=== PATIENT | male | born 1950 | race Caucasian/White ===

== ENCOUNTER 2017-02-08 06:43 | Day surgery (SDC) | payer MEDICARE, OTHER ==
[2017-01-28 10:23] VITALS: BMI 29.0
[~2017-02-08 06:43] MED LIST: LACTATED RINGERS 1,000 ML IV SCH
[2017-02-08 07:22] LABS: Glucose,Whole Blood 97 mg/dL (75-99)
[2017-02-08 07:24] VITALS: RESP 18; TEMP 97.3
[2017-02-08] MEDS ORDERED: LACTATED RINGERS 1,000 ML IV ONE (07:24)
[2017-02-08] MEDS ORDERED: PROPOFOL 10 MG/ML 20 ML VIAL IV ONE (07:47)
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
--- NOTE | 2017-02-08 08:17 | P.OP ---
Date of Procedure: 02/08/17 Preoperative Diagnosis: Screening colonoscopy Postoperative Diagnosis: Diverticulosis Procedure(s) Performed: Colonoscopy Anesthesia: MAC Surgeon: Colby Hilton Pathology: none sent Condition: stable Disposition: PACU Description of Procedure: Patient's placed on the endoscopy table in the lateral position. He received IV sedation. Digital rectal exam was performed which revealed no other medical history the prostate was symmetric without nodules. The flexible colonoscope was then placed patient anus passed throughout the entire colon. The ileocecal valve was visualized. The cecum, ascending transverse colon appeared normal. In the descending and sigmoid colon there is extensive diverticular changes. Scope was then brought back the rectum appeared normal. Scope was withdrawn for patient.
[2017-02-08 08:34] VITALS: BP 142/94; PULSE 82
== END 2017-02-08 08:53 | disposition home or self-care (01) ==
LOC: ORWHC2ENDO 06:43
PROVIDERS: ATTEND Surgery
DX: Z12.11 Encounter for screening for malignant neoplasm of colon (principal); K57.30 Diverticulosis of large intestine without perforation or abscess without bleeding; E11.9 Type 2 diabetes mellitus without complications; K21.9 Gastro-esophageal reflux disease without esophagitis; E78.5 Hyperlipidemia, unspecified; I10 Essential (primary) hypertension; G47.33 Obstructive sleep apnea (adult) (pediatric); Z99.89 Dependence on other enabling machines and devices; Z87.891 Personal history of nicotine dependence; Z79.899 Other long term (current) drug therapy; Z79.4 Long term (current) use of insulin
CPT/HCPCS: J2704; G0121; 45378

== ENCOUNTER → 2018-11-28 | Outpatient (CLI) | payer MEDICARE ==
--- NOTE | 2018-11-28 09:36 | US ---
EXAMINATION TYPE: US renal artery duplex complet DATE OF EXAM: 11/28/2018 COMPARISON: NONE CLINICAL HISTORY: Q27.1 Renal Arterial Stenosis. MEASUREMENTS: RENAL SIZE: Rt Kidney: 9.2 x 4.6 x 4.4cm Lt Kidney: 9.6 x 4.6 x 4.6cm RESISTANCE INDEX Right: 0.7 Left: 0.6 RA/AO RATIO (< 3.5 ) Right: 1.4 Left: 1.2 RA VELOCITY ( < 180 cm/s) Right: 116cm/s Left: 99.6cm/s Extensive overlying bowel gas and large abdomen making exam technically difficult. Right kidney shows very lobular contour, 2 echogenic foci noted upper and lower pole largest with the measuring 0.4 x 0.4 x 0.4cm No evidence of renal artery stenosis. IMPRESSION: 1. No sonographic evidence of renal arterial stenosis. 2. Lobulated contour of the right kidney could relate to prior trauma, be congenital in nature, or se quela of medical renal disease. 3. Nonobstructing right renal calculi measuring up to 0.4 cm.
== END | disposition home or self-care (01) ==
LOC: RADUSWWP 07:21
PROVIDERS: ATTEND Family Medicine
DX: N20.0 Calculus of kidney (principal); Z88.5 Allergy status to narcotic agent
CPT/HCPCS: 93975

== ENCOUNTER 2019-01-31 07:13 | Day surgery (SDC) | payer MEDICARE ==
[~2019-01-31 07:13] MED LIST changes: +DEXAMETHASONE SOD PHOSPHATE 10 MG/ML 1 ML VIAL IV ONE; +HEPARIN SODIUM,PORCINE 5,000 UNIT/ML 1 ML VIAL SQ ONE; +LIDOCAINE 1% 20 ML VIAL (10MG/ML) FOR IV START INTRADERMA PRN; +ONDANSETRON 4 MG/2 ML VIAL IVP PRN; +SCOPOLAMINE 1.5MG/72HR PATCH TRANSDERM ONE
[2019-01-31] MEDS: MIDAZOLAM PF (FBP) 2 MG/2 ML VIAL IVP ONE ×2 (08:08→10:46)
[2019-01-31] MEDS: fentaNYL (PF) 50 MCG/ML 2 ML AMP IVP ONE ×2 (08:08→10:46)
[2019-01-31 08:10] LABS: Glucose,Whole Blood 107 mg/dL (75-99)
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
[2019-01-31] MEDS ORDERED: GLYCOPYRROLATE 0.2 MG/ML 2 ML VIAL ONE (10:45)
[2019-01-31] MEDS ORDERED: KETOROLAC 30 MG/ML 1 ML VIAL ONE (10:45)
[2019-01-31] MEDS ORDERED: NEOSTIGMINE 1 MG/ML 10 ML VIAL ONE (10:45)
[2019-01-31] MEDS ORDERED: ePHEDrine SULFATE/0.9% NACL/PF 50 MG/5 ML SYRINGE IV ONE (10:45)
[2019-01-31] MEDS ORDERED: SUCCINYLCHOLINE CHLORIDE 100 MG/5 ML SYR IV ONE (10:45)
[2019-01-31] MEDS ORDERED: fentaNYL (PF) 50 MCG/ML 2 ML AMP ONE (10:45)
[2019-01-31] MEDS ORDERED: ROCURONIUM BROMIDE 10 MG/ML 10 ML VIAL IV ONE ×2 (10:45)
[2019-01-31] MEDS ORDERED: ROPIVACAINE 5 MG/ML 30 ML VIAL ONE (10:45)
[2019-01-31] MEDS ORDERED: PROPOFOL 10 MG/ML 20 ML VIAL IV ONE (10:45)
[2019-01-31] MEDS ORDERED: MIDAZOLAM 2 MG/2 ML VIAL ONE (10:45)
[2019-01-31] MEDS ORDERED: LACTATED RINGERS 1,000 ML IV ONE (11:14)
[2019-01-31] MEDS ORDERED: BUPIVACAINE (PF) 0.5% 30 ML VIAL SQ ONE ×2 (11:20)
[2019-01-31 12:25] VITALS: TEMP 97.6
[2019-01-31] MEDS: HYDROmorphone 0.5 MG/0.5 ML SYRINGE IVP PRN ×2 (12:34→12:41)
--- NOTE | 2019-01-31 12:34 | P.OP ---
Date of Procedure: 01/31/19 Preoperative Diagnosis: Umbilical hernia Postoperative Diagnosis: Incarcerated umbilical hernia Procedure(s) Performed: Laparoscopic robotic-assisted repair of incarcerated umbilical hernia Partial omentectomy Anesthesia: JUANITA Surgeon: Colby Hilton Estimated Blood Loss (ml): 5 Pathology: other (Incarcerated omentum/hernia sac) Condition: stable Disposition: PACU Description of Procedure: The patient was placed on the operating table in the supine position. He receiv ed general anesthesia. His abdomen was prepped and draped usual fashion. Using a 5 mm optical trocar under direct visualization the peritoneal cavity was entered in the left upper quadrant. The abdomen was then insufflated. The laparoscope was placed back into the perineal cavity. Next a 8 mm robotic trocar was placed in the left lower quadrant and a 12 mm robotic trocar was placed in the left lateral position. The original 5 mm trocar was exchanged for a 8 mm robotic trocar. The patient's placed in the left side up position. And the patient was undocked the robot. The umbilical hernia was visualized. Using hook cautery the peritoneum over the umbilical hernia was excised. The incarcerated omentum and hernia sac was transected with a large cautery and sent to pathology. The fascial opening was repaired using 0V LOC suture. Next a piece of 11 cm round ventral light ST mesh was placed into the. Cavity and secured with 2 OV lock suture. The patient was undocked the robot. The needles were retrieved. The fascia of the 12 mm trocar site was closed with 0 Ethibond suture. Skin was closed interrupted 3-0 Monocryl suture. Dermabond dressings was applied. Patient top procedure well and was sent to recovery room stable condition.
--- NOTE | 2019-01-31 13:06 | P.ANPRN ---
Procedure Note - Anesthesia - Nerve Block Performed Bilateral Rectus Abdominis Single Time Out Performed: Yes Date of Procedure: 01/31/19 Procedure Start Time: 08:07 Procedure Stop Time: 08:16 Location of Patient Procedure: PreOp Indication: Acute Post-Operative Pain, Requested by Surgeon (karlene) Specifically requested for management of pain by DrKasandra: Colby Hilton Sedation Type: Sedate with meaningful contact maintained Preparation: Sterile Prep Position: Supine Catheter: None Needle Types: Pajunk Needle Gauge: 20 Ultrasound used to visualize needle placement: Yes Ultrasound used to observe medication spread: Yes Injectate: Other (see comment) (0.25% ropivacaine/0.5% lidocaine 25 mL each side) Adjunct: Epinephrine (see comment for dilution ratio) (1:200,000) Blood Aspirated: No Pain Paresthesia on Injection Noted: No Resistance on Injection: Normal Image Stored and Saved: Yes Events: Uneventful and Well Tolerated
[2019-01-31 13:39] VITALS: RESP 16
[2019-01-31 14:47] VITALS: BP 141/90; PULSE 73
== END 2019-01-31 15:49 | disposition home or self-care (01) ==
LOC: OR 07:13
PROVIDERS: ATTEND Surgery
DX: K42.0 Umbilical hernia with obstruction, without gangrene (principal); E11.9 Type 2 diabetes mellitus without complications; K21.9 Gastro-esophageal reflux disease without esophagitis; E78.5 Hyperlipidemia, unspecified; I10 Essential (primary) hypertension; M19.90 Unspecified osteoarthritis, unspecified site; G47.33 Obstructive sleep apnea (adult) (pediatric); Z99.89 Dependence on other enabling machines and devices; H93.19 Tinnitus, unspecified ear; M10.9 Gout, unspecified; N20.0 Calculus of kidney; F41.9 Anxiety disorder, unspecified; Z87.891 Personal history of nicotine dependence; Z84.89 Family history of other specified conditions; Z79.84 Long term (current) use of oral hypoglycemic drugs; Z79.899 Other long term (current) drug therapy
CPT/HCPCS: 49653; 64488; 88302; C1781; J2250 ×2; J1644; J1100; J2710; J2405; J3010; J1885; J2795; J0330; J2704; J1170

== ENCOUNTER → 2019-09-25 | Outpatient (CLI) | payer MEDICARE | END | disposition home or self-care (01) | LOC: LABWHC1 12:51 | PROVIDERS: ATTEND Surgery | DX: Z11.59 Encounter for screening for other viral diseases (principal) ==

== ENCOUNTER 2019-09-28 07:43 | Day surgery (SDC) | payer MEDICARE ==
[2019-09-27 08:40] VITALS: BMI 29.8
[~2019-09-28 07:43] MED LIST changes: -DEXAMETHASONE SOD PHOSPHATE 10 MG/ML 1 ML VIAL IV ONE; -HEPARIN SODIUM,PORCINE 5,000 UNIT/ML 1 ML VIAL SQ ONE; -LIDOCAINE 1% 20 ML VIAL (10MG/ML) FOR IV START INTRADERMA PRN; -ONDANSETRON 4 MG/2 ML VIAL IVP PRN; -SCOPOLAMINE 1.5MG/72HR PATCH TRANSDERM ONE
[2019-09-28] MEDS ORDERED: LIDOCAINE 1% (10MG/ML) FOR IV START INTRADERMA ONE (08:06)
[2019-09-28 08:09] LABS: Glucose,Whole Blood 103 mg/dL (75-99)
[2019-09-28 08:14] VITALS: TEMP 97.7
[2019-09-28] MEDS ORDERED: PROPOFOL 10 MG/ML 20 ML VIAL IV ONE (08:32)
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
--- NOTE | 2019-09-28 08:54 | P.OP ---
Date of Procedure: 09/28/19 Preoperative Diagnosis: Diarrhea Postoperative Diagnosis: Diverticulosis Interventional hemorrhoids Random rectal biopsy pathology pending Procedure(s) Performed: Colonoscopy Anesthesia: MAC Surgeon: Colby Hilton Pathology: other (Rectum) Condition: stable Disposition: PACU Description of Procedure: The patient's placed on the endoscopy table in the lateral position. He received IV sedation. Digital rectal exam performed which revealed internal/external hemorrhoids. Flexible colonoscope was then placed patient anus passed throughout the entire colon. The ileocecal valve sutures. The cecum, ascending and transverse colon appeared normal. In the descending; there is moderate diverticular changes. There is no evidence of diverticulitis. Scope was brought back and the rectum and this appeared normal. A random biopsy of the rectum was performed due to the patient's symptoms a diarrhea. The scope was withdrawn for patient.
[2019-09-28 09:14] VITALS: RESP 16
[2019-09-28 09:38] VITALS: BP 112/71; PULSE 64
== END 2019-09-28 09:52 | disposition home or self-care (01) ==
LOC: ORWHC2ENDO 07:43
PROVIDERS: ATTEND Surgery
DX: K64.8 Other hemorrhoids (principal); K64.4 Residual hemorrhoidal skin tags; R19.7 Diarrhea, unspecified; E11.9 Type 2 diabetes mellitus without complications; K21.9 Gastro-esophageal reflux disease without esophagitis; H91.90 Unspecified hearing loss, unspecified ear; E78.5 Hyperlipidemia, unspecified; I10 Essential (primary) hypertension; M19.90 Unspecified osteoarthritis, unspecified site; G47.33 Obstructive sleep apnea (adult) (pediatric); Z99.89 Dependence on other enabling machines and devices; M10.9 Gout, unspecified; H93.19 Tinnitus, unspecified ear; Z87.442 Personal history of urinary calculi; Z87.19 Personal history of other diseases of the digestive system; Z98.890 Other specified postprocedural states; F41.9 Anxiety disorder, unspecified; Z87.891 Personal history of nicotine dependence; Z82.49 Family history of ischemic heart disease and other diseases of the circulatory system; Z79.84 Long term (current) use of oral hypoglycemic drugs; Z79.899 Other long term (current) drug therapy; Z88.5 Allergy status to narcotic agent
CPT/HCPCS: 88305; 45380; J2704; 45378

== ENCOUNTER → 2021-01-03 | Outpatient (CLI) | payer MEDICARE ==
--- NOTE | 2021-01-08 04:39 | MR ---
EXAMINATION TYPE: MR shoulder RT wo con DATE OF EXAM: 01/07/2021 COMPARISON: None HISTORY: Right Shoulder Pain Multiplanar multiecho imaging of the right shoulder with no contrast. There is large shoulder joint effusion. There is also subdeltoid effusion. There is subacromial joint space narrowing. There is moderate spurring at the AC joint. There is some retraction of the suprasp inatus tendon. Subscapularis tendon is intact. Biceps tendon appears intact. Glenoid aisha appear intact. There is s ome superior mild subluxation of the humeral head. There is no evidence of a fracture. IMPRESSION: Large rotator cuff tear with retraction of the supraspinatus tendon. Moderate shoulder joint effusion and subdeltoid effusion consistent with some synovitis and bursitis. Exam limited somewhat by motion . Moderate subacromial joint space narrowing and impingement.
== END | disposition home or self-care (01) ==
LOC: RADMRIMAIN 10:13
PROVIDERS: ATTEND Orthopaedic Surgery
DX: Z53.9 Procedure and treatment not carried out, unspecified reason (principal)

== ENCOUNTER → 2021-02-04 | Outpatient (CLI) | payer MEDICARE | END | disposition home or self-care (01) | LOC: LABPAT 12:54 | PROVIDERS: ATTEND Orthopaedic Surgery | DX: Z01.812 Encounter for preprocedural laboratory examination (principal); M12.811 Other specific arthropathies, not elsewhere classified, right shoulder; Z22.322 Carrier or suspected carrier of Methicillin resistant Staphylococcus aureus | CPT/HCPCS: 87070 ==

== ENCOUNTER 2021-02-10 05:58 | Day surgery (SDC) | payer MEDICARE ==
[2021-02-06 16:11] VITALS: BMI 31.2
--- NOTE | 2021-02-09 09:14 | HP ---
HISTORY AND PHYSICAL CHIEF COMPLAINT: Right shoulder pain and weakness. HISTORY OF PRESENT ILLNESS: Patient is a 70-year-old, right-hand dominant, retired gentleman who presents with progressive right shoulder pain and weakness for the past several years. It has worsened this year after a fall in October. He has diffuse pain with activity and any lifting. He notes decreased motion and strength. He is having night symptoms. He has tried previous injections along with home exercises and medications. His pain bothers him daily. PAST MEDICAL HISTORY: Significant for type 2 diabetes and hypertension. PAST SURGICAL HISTORY: Significant for right knee arthroscopy and thumb surgery. CURRENT MEDICATIONS: Amlodipine, atenolol, atorvastatin, Celebrex, Donepezil, Famotidine, glipizide, loratadine, and losartan. ALLERGIES: He has no known drug allergies. FAMILY HISTORY: Unknown. SOCIAL HISTORY: Negative for current tobacco or alcohol use. REVIEW OF SYSTEMS: Sixteen-point review of systems is reviewed and otherwise noncontributory. PHYSICAL EXAMINATION: On examination, the patient is approximately 5 foot 5, 195 pounds of endomorphic habitus. HEENT exam is nonfocal. Neck is supple. Active range of motion of the right shoulder. forward elevation 125 degrees, external rotation with arm at side 55 degrees, internal rotation to L3. Passively I able to forward elevate him to 150 degrees. Motor strength 4- over 5 for abduction and external rotation. Impingement test, Neer test, and Speed test are positive. His distal neurovascular exam appears intact in the right upper extremity. MRI report right shoulder is reviewed, shows evidence of a large rotator cuff tear with retraction. IMPRESSION: Right rotator cuff arthropathy with chronic retracted rotator cuff tear. RECOMMENDATIONS: I talked to the patient at length regarding his condition along with treatment options. At this point, he is quite symptomatic and limited because of pain despite previous conservative measures. After thorough discussion, he opts to proceed with surgery. We will plan to proceed with right reverse total shoulder arthroplasty. Risks and benefits were discussed at length in layman's terms. MMODL / IJN: [id number] /
[~2021-02-10 05:58] MED LIST changes: +ACETAMINOPHEN TAB 500 MG TAB PO PRN; -LACTATED RINGERS 1,000 ML IV SCH; +LIDOCAINE 1% (10MG/ML) FOR IV START INTRADERMA PRN; +MELOXICAM 7.5 MG TAB PO PRN; +ONDANSETRON 4 MG/2 ML VIAL IVP ONE; +TRANEXAMIC ACID 1,000 MG in SODIUM CHLORIDE 0.9% 100 ML IVPB PRN
[2021-02-10] MEDS ORDERED: LACTATED RINGERS 1,000 ML IV ONE ×3 (06:50→11:31)
[2021-02-10 06:57] LABS: Glucose,Whole Blood 112 mg/dL (75-99)
[2021-02-10] MEDS ORDERED: fentaNYL (PF) 50 MCG/ML 2 ML AMP ONE (07:53)
[2021-02-10] MEDS ORDERED: ROCURONIUM 10 MG/ML (5 ML VIAL) IV ONE (07:53)
[2021-02-10] MEDS ORDERED: PHENYLEPHRINE-0.9% NACL SYG 1,000 MCG/10 ML SYRINGE ONE (07:53)
[2021-02-10] MEDS ORDERED: SODIUM CHLORIDE 0.9% 100 ML BAG ONE (07:53)
[2021-02-10] MEDS ORDERED: SUCCINYLCHOLINE CHLORIDE 100 MG/5 ML SYR IV ONE (07:53)
[2021-02-10] MEDS ORDERED: ePHEDrine SULFATE/0.9% NACL/PF 50 MG/5 ML SYRINGE IV ONE (07:53)
[2021-02-10] MEDS ORDERED: TRANEXAMIC ACID 1,000 MG/10 ML VIAL ONE (07:53)
[2021-02-10] MEDS ORDERED: PROPOFOL 10 MG/ML 20 ML VIAL IV ONE (07:53)
[2021-02-10] MEDS ORDERED: GLYCOPYRROLATE 0.2 MG/ML 2 ML VIAL ONE (07:53)
[2021-02-10] MEDS ORDERED: KETAMINE 10 MG/ML 20 ML VIAL ONE (07:53)
[2021-02-10] MEDS ORDERED: NEOSTIGMINE 1 MG/ML 10 ML VIAL ONE (07:53)
[2021-02-10] MEDS ORDERED: MIDAZOLAM 2 MG/2 ML VIAL ONE (07:53)
[2021-02-10] MEDS ORDERED: LIDOCAINE 1% INJ 10MG/ML (20 ML MDV) ONE (07:53)
[2021-02-10] MEDS ORDERED: ROPIVACAINE 5 MG/ML 30 ML VIAL ONE (07:53)
[2021-02-10] MEDS ORDERED: HYDROcodone/APAP 5-325MG 1 EACH TAB PO PRN (09:43)
[2021-02-10] MEDS ORDERED: HYDROmorphone 0.2 MG/1 ML SYRINGE IVP PRN (09:43)
--- NOTE | 2021-02-10 10:07 | P.OP ---
Date of Procedure: 02/10/21 Preoperative Diagnosis: Chronic large right rotator cuff tear with arthropathy Postoperative Diagnosis: Same Procedure(s) Performed: Right reverse total shoulder arthroplasty Implants: Depuy Delta Xtend size 10 press-fit humeral stem, size 2 epiphysis, 38 millimeter +9 articular surface, 38 mm glenosphere with standard baseplate. Anesthesia: rj GRANT Surgeon: Aristeo Brown Refined Syrup Operator #1: Modesto Mercedes Estimated Blood Loss (ml): 150 Pathology: other (Humeral head) Condition: stable Disposition: PACU Indications for Procedure: The patient is a 70-year-old male presents with progressive right shoulder pain and weakness despite conservative measures. Clinically and by MRI he was noted have a chronic retracted large rotator cuff tear with arthropathy. He discussion of the risks and benefits of operative intervention versus continued conservative measures made with patient. He opted to proceed with surgery. Operative risks to include infection, neurovascular injury, fracture, instability, dislocation, possible need for subsequent procedures was discussed. Informed consent was obtained. Operative Findings: As below Description of Procedure: The patient was brought to the operating room, and after induction of general anesthesia was placed in a beachchair position. The bony prominences were appropriately padded. I examined the right shoulder. There was moderate lack of passive forward elevation and external rotation. The right upper extremity was prepped and draped in normal fashion. The bony outlines the coracoid process, distal clavicle, and acromion were outlined with a skin marker. A pulse centimeter deltopectoral incision was made lateral to the coracoid process. Skin was incised sharply. Subcutaneous tissues were divided bluntly. Electrocautery was used for hemostasis. The cephalic vein was identified and gently retracted laterally with the deltoid. The deltopectoral was bluntly developed. Subdeltoid adhesions were then released. The self-retaining retractor was placed. The conjoined tendon was retracted medially and the deltoid laterally. The biceps was identified. Its sheath was opened. A biceps tenotomy was performed along the remaining tendon did retract distally. Pseudocapsule was excised. The head was then exposed. The shoulder was dislocated. A starting hole was made in line with the humeral shaft. The canal was reamed by hand up to size 10. There was good distal chatter. The cutting guide was then placed. I planned on 20 of retroversion. The humeral head cut was then made. The bone was removed in one fragment. Residual inferomedial osteophytes were removed flush with the [place] cortical bone. Attention was then paid towards preparing the glenoid. An anterior and posterior retractors placed. The labrum was released from the 12-6 o'clock position. Remaining biceps was removed as well. A guidepin was placed in the inferior aspect of the glenoid with the guide slightly tilting inferior. The reamer was used down to a bleeding bony surface. The central peg hole was drilled. The standard baseplate was inserted with good purchase. Inferior, superior, and anterior locking screws the appropriate length were placed. Good purchase was obtained. The 38 mm glenosphere was inserted over a guidewire. This was fully seated. Care was taken to avoid any soft tissue interposition. Attention was then paid towards preparing the proximal humerus. The appropriate broach was placed and 20 of retroversion and was fully seated. An eccentric size 2 epiphyseal reamer was utilized. A size 10 stem with a size 2 epiphysis was placed and 20 of retroversion. Trial reduction was obtained with a 38 mm + 9 articular surface. The shoulder was taken through range of motion. The shoulder was felt to be stable in flexion and extension with internal and external rotation. I felt there was adequate yarsanism of soft tissue tension judging off the conjoined tendon. The shoulder was gently dislocated. The trial components were then removed. The final size 10 press-fit stem along with a size 2 epiphysis was fully seated. There was good rotational stability. The the 38 mm + 9 articular surface was impacted. The shoulder again was gently reduced and taken through range of motion. Again it was felt to be stable in all planes. Pulsatile lavage was utilized. The subscapularis was a attached to the lesser tuberosity with #2 Ethibond suture. The deltopectoral interval was closed with interrupted 2-0 Vicryl sutures. The skin was reapproximated with 3-0 lewis bcuticular Prolene suture. Steri-Strips were applied. A sterile dressing was applied. A sling was placed. The patient was awoken from general anesthesia and transferred to recovery room in good condition. Blood loss was estimated at 150 mL. No complications were incurred. Sponge and needle counts were correct at the end the case. Modesto MALLOY assisted during the major components of th e case to include exposure, glenoid and humeral preparation, implantation, and closure.
[2021-02-10] MEDS ORDERED: fentaNYL (PF) 50 MCG/ML 2 ML AMP IVP ONE (10:27)
--- NOTE | 2021-02-10 10:38 | XR ---
EXAMINATION TYPE: XR shoulder limited RT DATE OF EXAM: 02/10/2021 COMPARISON: NONE HISTORY: Postop TECHNIQUE: One view submitted FINDINGS: Postsurgical change appears in near-anatomic alignment. Soft tissue edema and emphysema not ed. IMPRESSION: Post op change
[2021-02-10] MEDS: LACTATED RINGERS 1,000 ML IV SCH ×2 (15:24→16:07)
[2021-02-10 21:00] LABS: Glucose,Whole Blood 244 mg/dL (75-99)
[2021-02-10] MEDS ORDERED: MONTELUKAST 10 MG TAB PO SCH (21:00)
[2021-02-10] MEDS ORDERED: ATORVASTATIN 40 MG TAB PO SCH (21:00)
[2021-02-10] MEDS ORDERED: BACLOFEN 10 MG TAB PO SCH (21:00)
[2021-02-10] MEDS: LORATADINE 10 MG TAB PO SCH (21:00)
[2021-02-10] MEDS: atenoloL 25 MG TAB PO SCH (21:00)
[2021-02-11] MEDS: HYDROcodone/APAP 7.5-325MG 1 EACH TAB PO PRN ×2 (00:44→06:53)
[2021-02-11] MEDS: LACTATED RINGERS 1,000 ML IV SCH ×2 (06:54)
[2021-02-11 06:57] VITALS: BP 131/72; PULSE 65; RESP 17; TEMP 98.9
[2021-02-11 07:04] LABS: Glucose,Whole Blood 163 mg/dL (75-99)
--- NOTE | 2021-02-11 08:57 | P.PN ---
Subjective Progress Note Date: 02/11/21 Principal diagnosis: Chronic large right rotator cuff tear with arthropathy Patient was seen at bedside this morning resting cuff placed semirecumbent in bed with arm sling in place. Patient says he is doing well with pain control. He says he took [place] 7.5 mg/325 mg this morning and it has helped control his pain. He says he does have some pain along the shoulder. Patient said he has had something to eat this morning. Patient says he would like to go home today. He says he has not had bowel movement, however, he says he has passed gas. Patient denies chest pain, fever, shortness of breath, nausea, vomiting, change in vision, loss of bowel/bladder control. Objective - Vital Signs Vital signs: Vital Signs Temp 98.9 F 02/11/21 06:55 Pulse 65 02/11/21 06:55 Resp 17 02/11/21 07:15 BP 131/72 02/11/21 06:55 Pulse Ox 93 L 02/11/21 06:55 Intake & Output 02/10/21 02/11/21 02/11/21 18:59 06:59 18:59 Intake Total 1430 Output Total 150 Balance 1280 Weight 84.5 kg Intake: IV 1080 Oral 350 Output: Estimated Blood Loss 150 Other: # Voids 1 3 # Bowel Movements 0 - Exam Right shoulder: Patient is alert, oriented 3 and responds to questions fully. Incision is clean, dry, intact. Suture and Steri-Strips are well in place. There is mild ecchymosis and swelling along the axilla and right upper arm. Cap refill below 3 seconds in digits. Radial pulses intact, bilaterally, 2+. Patient is able to flex and extend her wrist fully and flex and extend at the elbow. - Labs Labs: Abnormal Lab Results - Last 24 Hours (Table) 02/10/21 02/11/21 Range/Units 20:58 06:56 POC Glucose (mg/dL) 244 H 163 H (75-99) mg/dL Assessment and Plan Assessment: Chronic large right rotator cuff tear with arthropathy Postoperative day #1 status post right reverse total shoulder arthroplasty Plan: 1. Chronic large right rotator cuff tear with arthropathy - right reverse total shoulder arthroplasty performed yesterday, 02/10/2021. Patient stable at this morning. Plan discharge home today. 2. Appreciate medical management 3. Pain management - going home with [place] 7.5 mg/325 mg. 4. DVT prophylaxis - going home with aspirin 325 mg 5. PT/OT - nonweightbearing right arm. Encourage to flex and extend the elbow and wrist. keep sling on all times 6. Discharge planning - plan discharge home today Time with Patient: Less than 30
[2021-02-11] MEDS ORDERED: LOSARTAN 50 MG TAB PO SCH (09:00)
[2021-02-11] MEDS ORDERED: amLODIPine 5 MG TAB PO SCH (09:00)
[2021-02-11] MEDS ORDERED: DICYCLOMINE 20 MG TAB PO SCH (09:00)
[2021-02-11] MEDS ORDERED: ASPIRIN 325 MG TAB PO SCH (09:00)
[2021-02-11] MEDS ORDERED: DONEPEZIL 5 MG TAB PO SCH (09:00)
[2021-02-11] MEDS ORDERED: ESCITALOPRAM 20 MG TAB PO SCH (09:00)
--- NOTE | 2021-02-11 09:36 | P.DS ---
Providers Date of admission: 02/10/2021 Expected date of discharge: 02/11/21 Attending physician: Aristeo Brown Consults: 02/10/21 09:54 Consult Physician Routine Consulting Provider: Duglas Dumont Consult Reason/Comments: Medical Management s/p reverse righ total shoulder arthroplasty Do you want consulting provider notified?: Yes Primary care physician: Melodie Dumont Hospital Course: Date of admission: 02/10/2021 Date of discharge: 02/11/2021 Admission diagnosis: Status post reverse right total shoulder arthroplasty Discharge diagnosis: Same Attending physician: Dr. Brown Surgical procedures: Reverse right total shoulder arthroplasty Brief history: Patient is a 70-year-old male with a history of a large retracted right shoulder rotator cuff tear with arthropathy. At this point patient has failed conservative treatment measures and has opted to proceed with a elective reverse right total shoulder arthroplasty. Hospital course: Details of patient's surgery can be found in operative report. Patient tolerated the procedure well and was subsequently transported to orthopedic floor. Patient's orthopeidc and medical care was provided daily. Patient had daily laboratory tests performed for evaluation of overall blood counts. Patient had daily physical therapy to include strengthening range of motion as well as education with walker ambulation. Patient was treated with aspirin for their postoperative DVT prophylaxis during their inpatient stay. Patient was noted to have a relatively uneventful postoperative course. Patient reported satisfactory pain control with oral pain medications by postoperative day 0. Patient showed satisfactory progress with physical therapy. Patient moved steadily through the program and had no difficulty meeting the goals by postoperative day 1. Given patient's otherwise satisfactory course and having met physical therapy goals, plan is to discharge patient home on postoperative day 1. Discharge condition/disposition: Patient will be discharged home in stable condition. Discharge medications: Instructions are given on resumption of patient's normal daily medications per primary care recommendation, in addition patient will be prescribed Mylo 7.5 mg/325 mg, Colace 100 mg, aspirin 325 mg. Discharge instructions: 1. Wound care and infection precautions, [keep incision dry and covered while showering], no lotions, creams, moisturizers. No soaking, tubs, pools, hottubs. Do not scrub over the incision. 2. Utilize arm sling 3. Ice and elevate when necessary. Do not exceed 20 minutes per hour with ice pack. 4. Utilize compression sleeve until seen at first follow up appointment. 5. Pain meds and anticoagulants per prescription. 6. Pain medication has potential to cause constipation. Increase oral fluid and fiber intake. Contact primary care provider if you have not had a bowel movement within 48 hours after discharge 7. No anti-inflammatory medication until discussed at first post operative visit, this including Motrin, Aleve, Mobic, Diclofenac 8. Follow up in office at 2 weeks postop with Vik Yee PA-C/[place] Mercedes PA-C 9. Follow up with your primary care doctor 7-10 days after discharge. 10. Contact [facility] with any questions, . Procedures: Reverse right total shoulder arthroplasty Patient Condition at Discharge: Good Plan - Discharge Summary Discharge Rx Participant: No New Discharge Prescriptions: New HYDROcodone/APAP 7.5-325MG [Mylo 7.5] 1 each PO Q6HR PRN #32 tab PRN Reason: Pain Docusate [Colace] 100 mg PO DAILY #30 cap Aspirin 325 mg PO BID #60 tab No Action Atorvastatin [Lipitor] 40 mg PO HS Escitalopram [Lexapro] 20 mg PO DAILY atenoloL 25 mg PO BID Ascorbic Acid [Vitamin C] 1,000 mg PO DAILY Loratadine [Claritin] 10 mg PO BID Famotidine [Pepcid] 40 mg PO DAILY Losartan Potassium 100 mg PO DAILY Ipratropium [place] 0.06%Nasal [Atrovent Nasal 0.06%] 2 spray EA NOSTRIL HS Fluticasone Nasal [place] [Flonase Nasal [place]] 2 spray EA NOSTRIL DAILY Baclofen 10 mg PO HS Albuterol Nebulized [Ventolin Nebulized] 1.25 mg INHALATION Q6H PRN PRN Reason: Shortness Of Breath Zinc 50 mg PO DAILY amLODIPine [Norvasc] 5 mg PO DAILY Donepezil [Aricept] 5 mg PO DAILY Cholecalciferol [Vitamin D3 (25 Mcg = 1000 Iu)] 25 mcg PO DAILY Celecoxib [CeleBREX] 200 mg PO DAILY Montelukast [Singulair] 10 mg PO HS Dicyclomine [Bentyl] 20 mg PO DAILY Discharge Medication List Atorvastatin [Lipitor] 40 mg PO HS 01/28/17 [History] Escitalopram [Lexapro] 20 mg PO DAILY 01/28/17 [History] atenoloL 25 mg PO BID 01/28/17 [History] Ascorbic Acid [Vitamin C] 1,000 mg PO DAILY 01/26/19 [History] Loratadine [Claritin] 10 mg PO BID 01/26/19 [History] Famotidine [Pepcid] 40 mg PO DAILY 09/27/19 [History] Ipratropium [place] 0.06%Nasal [Atrovent Nasal 0.06%] 2 spray EA NOSTRIL HS 09/27/19 [History] Losartan Potassium 100 mg PO DAILY 09/27/19 [History] Albuterol Nebulized [Ventolin Nebulized] 1.25 mg INHALATION Q6H PRN 02/09/21 [History] Baclofen 10 mg PO HS 02/09/21 [History] Celecoxib [CeleBREX] 200 mg PO DAILY 02/09/21 [History] Cholecalciferol [Vitamin D3 (25 Mcg = 1000 Iu)] 25 mcg PO DAILY 02/09/21 [History] Dicyclomine [Bentyl] 20 mg PO DAILY 02/09/21 [History] Donepezil [Aricept] 5 mg PO DAILY 02/09/21 [History] Fluticasone Nasal [place] [Flonase Nasal [place]] 2 spray EA NOSTRIL DAILY 02/09/21 [History] Montelukast [Singulair] 10 mg PO HS 02/09/21 [History] Zinc 50 mg PO DAILY 02/09/21 [History] amLODIPine [Norvasc] 5 mg PO DAILY 02/09/21 [History] Aspirin 325 mg PO BID #60 tab 02/11/21 [Rx] Docusate [Colace] 100 mg PO DAILY #30 cap 02/11/21 [Rx] HYDROcodone/APAP 7.5-325MG [Mylo 7.5] 1 each PO Q6HR PRN #32 tab 02/11/21 [Rx] Follow up Appointment(s)/Referral(s): [place] Mercedes, CECILE [PHYSICIAN PL[employer]ING DESIGNER] - 02/26/21 Activity/Diet/Wound Care/Special Instructions: Orthopedic discharge instructions: 1. Keep incision covered and dry while showering 2. Utilize arm sling 3. Ice the shoulder often 4. Pain medication as needed 5. Recommend use of stool softener while taking pain medication 6. Aspirin 325 mg daily for 2 weeks 7. Plan for [facility]up at [facility] 2 [facility] Discharge Disposition: HOME SELF-CARE
[2021-02-11 10:06] LABS: Basophils # (A) 0.02 X 10*3/uL (0.00-0.10); Basophils % (A) 0.2 %; Eosinophils # (A) 0 X 10*3/uL (0.04-0.35); Eosinophils % (A) 0 %; HCT 33.2 % (39.6-50.0); HGB 10.9 g/dL (13.0-17.0); Lymphocytes # (A) 0.69 X 10*3/uL (0.90-5.00); Lymphocytes % (A) 5.2 %; MCH 31.6 pg (27.0-32.0); MCHC 32.8 g/dL (32.0-37.0); MCV 96.2 fL (80.0-97.0); Mean Platelet Volume 12.1 fL (9.5-12.2); Monocytes # (A) 1.47 X 10*3/uL (0.20-1.00); Monocytes % (A) 11.1 %; Neutrophils # (A) 11.01 X 10*3/uL (1.80-7.70); Platelet Count 151 X 10*3/uL (140-440); RBC 3.45 X 10*6/uL (4.40-5.60); RDW 12.4 % (11.5-14.5); WBC 13.26 X 10*3/uL (4.50-10.00)
[2021-02-11] MEDS: atenoloL 25 MG TAB PO SCH (10:36)
[2021-02-11] MEDS: LORATADINE 10 MG TAB PO SCH (10:39)
== END 2021-02-11 11:36 | disposition home or self-care (01) ==
LOC: OR 05:58 → 4SSUR 14:03 → OR 02-11 11:36
PROVIDERS: ATTEND Orthopaedic Surgery
DX: M75.101 Unspecified rotator cuff tear or rupture of right shoulder, not specified as traumatic (principal); M19.011 Primary osteoarthritis, right shoulder; I10 Essential (primary) hypertension; E78.5 Hyperlipidemia, unspecified; G47.00 Insomnia, unspecified; E11.9 Type 2 diabetes mellitus without complications; K21.9 Gastro-esophageal reflux disease without esophagitis
CPT/HCPCS: 23472; 64415; 76942; 85025; 88300; 87635; 73020; C1776; J2250; J2710; J0690 ×2; J2405; J2001; J3010; J2795; J2370; J0330; J2704

== ENCOUNTER → 2021-05-26 | Outpatient (CLI) | payer MEDICARE ==
--- NOTE | 2021-05-26 18:23 | CT ---
EXAMINATION TYPE: CT angio chest DATE OF EXAM: 05/26/2021 COMPARISON: None HISTORY: Abnormal lung linder, Hx Covid CT DLP: 546 mGycm Automated exposure control for dose reduction was used. CONTRAST: Performed with IV Contrast, patient injected with 80 mL of Isovue 370. There are Three-D postprocessed images. Mediastinum is within normal limits. Thoracic aorta is intact. There is no aneurysm or dissection. Th ere are no hilar masses. There is normal contrast opacification of the pulmonary arteries. There are no filling defects. There is 2 cm densely calcified granuloma right lower lobe. There is hiatal herni a. The lungs are clear of consolidation. There is no pleural effusion. Upper abdominal soft tissues are intact. There is some degenerative spurring in the thoracic spine. IMPRESSION: No evidence of pulmonary embolism. Old granulomatous disease. Hiatal hernia.
== END | disposition home or self-care (01) ==
LOC: RADCTMAIN 16:03
PROVIDERS: ATTEND Family Medicine
DX: R91.8 Other nonspecific abnormal finding of lung field (principal); R06.02 Shortness of breath; R05.9 Cough, unspecified; Z86.16 Personal history of COVID-19
CPT/HCPCS: 82565; 84520; 71275; 36415; Q9967

== ENCOUNTER → 2022-01-19 | Outpatient (CLI) | payer MEDICARE ==
--- NOTE | 2022-01-19 15:00 | NM ---
EXAMINATION TYPE: NM stress cardiolite complete DATE OF EXAM: 01/19/2022 COMPARISON: NONE HISTORY: I10 HTN R07.89 CHEST PAIN TECHNIQUE: After the intravenous administration of 9.4 mCi Tc 99m Sestamibi - Rest images obtained 5 0 minutes post injection. The patient exercised using a MADAY protocol and 1 minute prior to peak e xercise was injected with 25.7 mCi Tc 99m Sestamibi - Stress images obtained 20 minutes post injectio n. FINDINGS: Targeted heart rate was achieved during performance of the study, patient achieved 90% of predicted m aximal heart rate. Review of stress and rest SPECT images demonstrates mild decreased along the infer ior wall the left ventricle greater on rest images than on stress images and extending towards the ap ex. Gated analysis shows normal wall motion with an estimated left ventricular ejection fraction of 56 %. IMPRESSION: No scintigraphic evidence for reversible ischemia
--- NOTE | 2022-01-20 10:00 | CA ---
Exercise Stress Test Report Name: Sal Plummer Exam Date: 01/19/2022 09:53 Exam Location: [facility] Ht (in): 65 Wt (lb): 185 BSA: 1.91 Ordering Phys: Melodie Dumont DO Referring Phys: Melodie Dumont DO Technologist: Chriss Saravia Age: 71 Gender: M : 1950 Procedure CPT: Indications: I10 HTN R07.89 CHEST PAIN ICD-10 Codes: Patient History: Chest Pressure and shortness of breath Medications: Meds past 24 hrs: Pretest Chest Pain: STRESS TEST Tone Protocol Exercise Duration (min:sec): 06:[address] Depressions (mm): Angina Score: Bernardo Score: Resting HR (bpm): 51 Peak HR (bpm): 132 Resting BP (mmHg): 141 / 77 Peak BP (mmHg): 179 / 77 MPHR: 147 Target HR: 125 % MPHR: 90 METS: 8.6 Total Dose: Peak Dose: Atropine: Double Product: 14513 BP Response: Stress Termination: Reached target heart rate Stress Symptoms: No chest pain or symptoms Stress Summary: ECG ANALYSIS Resting ECG: Stress ECG: CONCLUSIONS Good exercise tolerance Normal EKG in response to exercise Dr. Bucky Cardona MD (Electronically Signed) Final Date: 20 January 2022 10:00
== END | disposition home or self-care (01) ==
LOC: RADNMMAIN 08:21
PROVIDERS: ATTEND Family Medicine
DX: R07.89 Other chest pain (principal); I10 Essential (primary) hypertension
CPT/HCPCS: 93017; 78452; A9500

== ENCOUNTER → 2023-03-23 | Outpatient (CLI) | payer MEDICARE ==
--- NOTE | 2023-03-24 07:28 | MR ---
EXAMINATION TYPE: MR brain wo con DATE OF EXAM: 03/23/2023 COMPARISON: None HISTORY: Abnormal EEG. CONTRAST: Performed utilizing 0 mL intravenous Gadavist gadolinium contrast. TECHNIQUE: Multiplanar, multiecho imaging on a 3.0 Alia magnet is performed through the brain. Stud y is performed within 24 hours of arrival to the hospital. The craniovertebral junction is normal. The pituitary is normal. Optic chiasm appears normal. Diffusion-weighted imaging is performed. No abnormal hyperintensity is present to suggest an acute i ntracranial infarct or acute ischemic change. Multiple small subcortical white matter changes are urgent recovery sequences within the parietal and occipital regions. Differential diagnosis could include vasculitis, multiple sclerosis, Lyme disease . Ventricles and sulci are appropriate for the patient age. IMPRESSION: 1. Multiple punctate subcortical white matter changes, likely on the basis of chronic white matter is chemic change.
== END | disposition home or self-care (01) ==
LOC: RADMRIMAIN 14:16
PROVIDERS: ATTEND Family Medicine
DX: G93.89 Other specified disorders of brain (principal); I67.9 Cerebrovascular disease, unspecified; R94.01 Abnormal electroencephalogram [EEG]
CPT/HCPCS: 70551

== ENCOUNTER → 2024-03-13 | Outpatient (CLI) | payer MEDICARE ==
--- NOTE | 2024-03-14 00:01 | MR ---
EXAMINATION TYPE: MR hip RT wo con DATE OF EXAM: 03/13/2024 6:58 PM COMPARISON: None. CLINICAL INDICATION: Male, 74 years old with history of M25.551, Bilateral hip pain Standard multiplanar, multisequence MRI departmental protocol Multiplanar, multisequence images of the pelvis focusing on right hip were acquired without contrast. FINDINGS: Symmetric moderate axial joint space loss in both hips is present. No significant effusions bilaterally. Femoral head shapes are maintained bilaterally. No serpiginous diminished T1 signal to suggest avascular necrosis bilaterally. No suspicious increased T2 signal or osseous edema. Right hip shows asymmetric prominent fluid at the level of the right greater trochanter with heterogeneous inc reased signal involving distal tendons. There are small fat-containing bilateral inguinal hernias. No suspicious right adenopathy. Muscle bulk is symmetric bilaterally. No abnormal bowel dilatation. No free fluid in the pelvis. Sigmoid colonic diverticula are noted. IMPRESSION: There is marked right-sided greater trochanteric insertional tendinosis and likely partial tearing of distal tendon near insertion. [facility], , 03/13/2024 11:58 PM
== END | disposition home or self-care (01) ==
LOC: RADMRIMAIN 18:09
PROVIDERS: ATTEND Family Medicine
DX: M25.551 Pain in right hip (principal)